=== PATIENT | female | born 1950 | race Caucasian/White ===

== ENCOUNTER 2023-04-25 23:24 | Emergency (ER) | payer MEDICARE ==
[~2023-04-25] VITALS: Ht 165.1 cm; Wt 72.7 kg
--- NOTE | 2023-04-26 01:50 | NUR ---
PT IS RESTING QUIETLY ON GURNEY, RESP EVEN AND UNLABORED
--- NOTE | 2023-04-26 03:31 | NUR ---
report given to Kala, staff at [facility]. Unable to provide transport back to facility at this time.
--- NOTE | 2023-04-26 03:37 | NUR ---
called [facility] and informed Kala that it is their responsibility to find transportation back to their facility as the patient is discharged and informed her to call me back with an ETA.
--- NOTE | 2023-04-26 03:41 | NUR ---
she called non emergency [facility] and they said that the hospital has to call to set up transport. This is not what [facility] administration has been told over the past 2 months. I am calling this number to find out what is going on.
--- NOTE | 2023-04-26 04:09 | NUR ---
[facility] called, will accept transport and will call back for an ETA when they are at level. PCS filled out.
--- NOTE | 2023-04-26 04:12 | NUR ---
Kala, notified that [facility] is set up for transportation.
--- NOTE | 2023-04-26 06:04 | NUR ---
PT IS SLEEPING, RESP EVEN AND UNLABORED
--- NOTE | 2023-04-26 08:33 | NUR ---
CALLED [facility], NO PICKUP TIME ON PT TO [place]
[2023-04-26 09:00] VITALS: BP 142/63
--- NOTE | 2023-04-26 09:22 | NUR ---
ATTEMPTED TO CALL [facility] FOR PICKUP, NO1 ANSWERED
--- NOTE | 2023-04-26 09:23 | NUR ---
AWAITING TRANSPORT, PT CONTINUES TO REST WITH EYES CLOSED, EFFORTLESS RESPIRATIONS OBSERVED
== END 2023-04-26 19:13 | disposition home or self-care (01) ==
LOC: ER 23:25
DX: S42.351A Displaced comminuted fracture of shaft of humerus, right arm, initial encounter for closed fracture (principal); W18.39XA Other fall on same level, initial encounter; Y93.89 Activity, other specified; Y92.89 Other specified places as the place of occurrence of the external cause; Y99.8 Other external cause status
CPT/HCPCS: 73030; 99284; 99285